=== PATIENT | female | born 1965 | race Hispanic/Latino ===

== ENCOUNTER 2017-03-20 09:10 | Day surgery (SDC) | payer OTHER ==
[~2017-03-20 09:10] MED LIST: NACL 0.9% 1000 ML 1,000 ML IV SCH; PEPCID PO NR; VERSED IV NR
[2017-03-20] MEDS ORDERED: NACL BACTERIOSTATIC INFILTRATI ONE (10:27)
--- NOTE | 2017-03-20 10:35 | Anesthesia Consultation ---
Anesthesia Consult and Med Hx Date of service: 03/20/17 - Airway Anesthetic Teeth Evaluation: Good, Crowns (top right molar) ROM Head & Neck: Adequate Mental/Hyoid Distance: Adequate Mallampati Class: Class II Intubation Access Assessment: Probably Good - Pulmonary Exam CTA: Yes - Cardiac Exam Cardiac Exam: RRR - Pre-Operative Health Status ASA Pre-Surgery Classification: ASA2 Proposed Anesthetic Plan: General - Pulmonary Hx Smoking: Yes (1 PPD) Hx Sleep Apnea: No (HAO PRE WSCREEN LOW RISK) - Cardiovascular System Hx Hypertension: No - Other Systems Hx Cancer: No Hx Obesity: Yes - Additional Comments Anesthesia Medical History Comments: PONV
--- NOTE | 2017-03-20 10:35 | Anesthesia Day of Surgery ---
Anesthesia Day of Surgery - Day of Surgery Patient Examined: Yes Patient is NPO: Yes
[2017-03-20] MEDS ORDERED: PERCOCET 5/325 PO PRN (10:36)
[2017-03-20] MEDS ORDERED: MORPHINE IV PRN ×2 (10:36)
[2017-03-20] MEDS ORDERED: TRANSDERM-SCOP TD NR (11:00)
[2017-03-20] MEDS ORDERED: ZOFRAN IV PRN (11:00)
[2017-03-20] MEDS ORDERED: REGLAN IV PRN (11:00)
[2017-03-20] MEDS ORDERED: DIPRIVAN 10 MG/ML IV ONE ×2 (11:51→12:27)
[2017-03-20] MEDS ORDERED: SUBLIMAZE ONE (11:51)
[2017-03-20] MEDS ORDERED: XYLOCAINE MPF 2% ONE (11:52)
[2017-03-20] MEDS ORDERED: MARCAINE 0.25% INFILTRATI ONE ×2 (11:53→13:08)
[2017-03-20] MEDS ORDERED: XYLOCAINE 1% 20 mL ONE (11:53)
[2017-03-20] MEDS ORDERED: ADRENALIN ONE (11:53)
[2017-03-20] MEDS ORDERED: NACL 0.9% IR ONE (12:14)
[2017-03-20] MEDS ORDERED: ZOFRAN ONE ×2 (12:23→12:41)
[2017-03-20] MEDS ORDERED: DECADRON ONE (12:23)
[2017-03-20] MEDS ORDERED: ROBINUL ONE (12:48)
--- NOTE | 2017-03-20 13:16 | Short Stay Summary ---
Short Stay Documentation - Allergies and Medications Current Medications: Allergies No Known Allergies Allergy (Verified 03/18/17 15:38) Home Medications Medication Instructions Recorded Confirmed Last Taken Type No Known Home Medications [No 03/18/17 03/18/17 Unknown History Reported Home Medications] Active Medications Sodium Chloride (Nacl 0.9% 1000 Ml) 1,000 mls @ 75 mls/hr IV DIRECT JOVANNA Last Admin: 03/20/17 10:49 Dose: 75 mls/hr Midazolam HCl (Versed) 2 mg IV PREOP NR Stop: 03/20/17 23:59 Last Admin: 03/20/17 11:02 Dose: 2 mg Morphine Sulfate (Morphine) 2 mg IV Q10MIN PRN PRN Reason: Pain, Moderate (4-6) Stop: 03/20/17 15:00 Morphine Sulfate (Morphine) 4 mg IV Q10MIN PRN PRN Reason: Pain , Severe (7-10) Stop: 03/20/17 15:00 Scopolamine (Transderm-Scop) 1 each TD PREOP NR Stop: 03/20/17 16:00 Last Admin: 03/20/17 11:08 Dose: 1 each Short Stay Discharge Plan Activity: advance as tolerated, fall precautions Weight Bearing Status: Weight Bear as Tolerated (from knee standpoint) Diet: other (resume previous diet as tolerated) Wound: per your surgeon's advice Additional Instructions: follow DC instruction sheet keep dressing dry pain meds prn ice pacs knee start PT thursday start knee movements today as tolerated Follow up with: JAYMIE JACOBSEN MD [Primary Care Provider] - 7 Days SERGIO BANGURA MD [Staff Physician] - 14 Days
--- NOTE | 2017-03-20 13:55 | Post Anesthesia Evaluation ---
- Post Anesthesia Evaluation Patient Participated: Yes Airway Patent: Yes Stable Respiratory Function: Yes Nausea/Vomiting: No Temp > 96.8F: Yes Pain Manageable: Yes Adequeate Hydration: Yes Anesthesia Complications: No Block Receding Appropriately: Not Applicable Patient on Ventilator: No
[2017-03-20 14:54] VITALS: BP 135/86
[2017-03-20] MEDS ORDERED: ANCEF/STERILE WATER 2 GM/20 ML IV NR (15:00)
--- NOTE | 2017-04-02 14:23 | Operative Report ---
PREOPERATIVE DIAGNOSES: 1. Medial meniscus tear of the left knee. 2. Osteoarthritis of the left knee. 3. Effusion, left knee joint with synovitis. POSTOPERATIVE DIAGNOSES: Advanced patellofemoral arthritis and mild arthritis of the lateral compartment. Synovitis and synovial proliferation of the left knee joint. COMPLICATIONS: None. SURGEON: Andrez Butcher M.D. DISPATCH SUPERVISOR: Chicho Munoz, operative tech. PROCEDURES PERFORMED: 1. Left knee arthroscopy. 2. Arthroscopic partial synovectomy. 3. Arthroscopic debridement and chondroplasty. BRIEF HISTORY: The patient had a painful left knee, failed conservative treatment, opted to undergo surgical intervention. Risk and benefit discussed, informed consent obtained. The patient elected for arthroscopy procedure, refuses any sort of replacement or partial or total knee replacement. She refuses as of now. DETAILS OF THE OPERATIVE REPORT: The patient was taken to the operating room. After smooth general anesthesia, all the bony prominences were carefully padded, placed supine on the operating table. Thigh tourniquet was placed. Left knee and left lower extremity prepped and draped in sterile fashion. Leg elevated, tourniquet inflated to 300 mmHg. A high lateral portal was created. Arthroscope introduced. Diagnostic arthroscopy was performed. Findings as noted below. Under direct visualization, direct medial portal was created. The probe was used to check if there is any flap tear of the medial meniscus as reported on the MRI. We looked at the meniscus and it was on the superior and inferior surface by using the probe and we did not find any tear. There was a pristine medial meniscus. She had some fraying of the synovial tissue around the meniscal area which was debrided with a synovial resector. Using synovial resector, necessary debridement, chondroplasty was performed of the frayed cartilage and fibrillation of the cartilage in the retropatellar area. Significant synovial hypertrophic perforation was noted and partial synovectomy was performed in the patellofemoral area. The meniscus seemed to be intact. PCL was intact. After necessary debridement, chondroplasty, and partial synovectomy was performed. The fluid was evacuated and portal sites were closed with 3-0 nylon interrupted sutures. Dressing was done with Xeroform, 4 x 4s, ABD, cast padding, Vitor wrap. The patient tolerated the procedure well, shifted to recovery room in stable condition. Sponge and needle count was correct. ARTHROSCOPIC FINDINGS: Lateral gutter pristine with signs of synovitis and loose floating cartilage pieces and synovial tissue around in the knee or retropatellar, grade 4 osteoarthritic changes about 60%-70%, grade 3 about 20%-30%. Trochlea grade 4 osteophytic changes about 50%-60%, grade 3 about 30-40%. Medial femoral condyle fairly pristine with medial tibial plateau, fairly pristine grade 2 changes throughout in the medial compartment. Medial meniscus intact. ACL intact, PCL intact. Possibility of previous ACL partial tear, possibly with ____ ACL seemed to be ____. Lateral compartment has arthritic changes of grade 2+ tibial plateau throughout with 10%-20%, grade 3 lateral femoral condyle, grade 2 changes throughout. Lateral meniscus pristine. Synovial hypertrophy and synovial proliferation fat pad normal. JOB# [id number] JOHN/ANGELLA
== END 2017-03-20 09:11 | disposition home or self-care (01) ==
LOC: OR 09:10
PROVIDERS: ATTEND Orthopaedic Surgery
PROC: 0SBC4ZZ Excision of Right Knee Joint, Percutaneous Endoscopic Approach (ICD-10-PCS; principal; 2017-03-20)
DX: S83.242A Other tear of medial meniscus, current injury, left knee, initial encounter (principal); E66.9 Obesity, unspecified; F17.210 Nicotine dependence, cigarettes, uncomplicated
CPT/HCPCS: 29877; 81025; A4217; J0171; J1100; J2250; J2270; J2405; J2704; J3010; J7030